=== PATIENT | female | born 1945 | race Caucasian/White ===

== ENCOUNTER 2016-11-12 09:44 | Day surgery (SDC) | payer MEDICARE, OTHER ==
[2016-11-12] MEDS ORDERED: TROPICAMIDE 1% OPHTH 2 ML DROPS OPTH ONE (10:23)
[2016-11-12] MEDS ORDERED: CYCLOPENTOLATE 1% OPHTH DROPS 2 ML OPTH ONE (10:23)
[2016-11-12] MEDS ORDERED: KETOROLAC 0.45% OPHTH DROPS OPTH ONE (10:23)
[2016-11-12] MEDS ORDERED: LACTATED RINGERS 500 ML IV ONE (10:32)
[2016-11-12] MEDS ORDERED: TETRACAINE 0.5% OPHTH DROPS 4 ML OPTH ONE (12:26)
[2016-11-12] MEDS ORDERED: levoFLOXacin 0.5% OPHTH DROPS 5 ML OPTH ONE (12:26)
[2016-11-12] MEDS ORDERED: PROPARACAINE 0.5% OPHTH DROPS 15 ML OPTH ONE (12:26)
[2016-11-12] MEDS ORDERED: BRIMONIDINE 0.2% OPHTH DROPS 5 ML OPTH ONE (12:26)
[2016-11-12] MEDS ORDERED: EPINEPHrine 1 MG/ML AMP IO ONE (12:26)
[2016-11-12] MEDS ORDERED: CHONDR SULF/HYALURONATE SYRINGE IO ONE (12:27)
[2016-11-12] MEDS ORDERED: BSS/LIDOCAINE/EPINEPHRINE 1 ML SYRINGE IO ONE (12:27)
[2016-11-12] MEDS ORDERED: METOPROLOL 5 MG/5 ML VIAL IVP ONE (12:35)
[2016-11-12] MEDS ORDERED: PROPOFOL 200 MG/20 ML VIAL IVP ONE (12:35)
[2016-11-12] MEDS ORDERED: LIDOCAINE-MPF 2% 5 ML VIAL IM ONE (12:35)
[2016-11-12] MEDS ORDERED: MIDAZOLAM 2 MG/2 ML VIAL IVP ONE (12:35)
== END 2016-11-12 09:45 | disposition home or self-care (01) ==
PROC: 08RK3JZ Replacement of Left Lens with Synthetic Substitute, Percutaneous Approach (ICD-10-PCS; principal; 2016-11-12 11:00)
DX: H25.12 Age-related nuclear cataract, left eye (principal)
CPT/HCPCS: 66984; V2632; V2787

== ENCOUNTER 2016-11-26 06:11 | Day surgery (SDC) | payer MEDICARE, OTHER ==
[2016-11-26] MEDS ORDERED: TROPICAMIDE 1% OPHTH 2 ML DROPS OPTH ONE (06:50)
[2016-11-26] MEDS ORDERED: KETOROLAC 0.45% OPHTH DROPS OPTH ONE (06:50)
[2016-11-26] MEDS ORDERED: CYCLOPENTOLATE 1% OPHTH DROPS 2 ML OPTH ONE (06:50)
[2016-11-26] MEDS ORDERED: LACTATED RINGERS 500 ML IV ONE (07:00)
[2016-11-26] MEDS ORDERED: MIDAZOLAM 2 MG/2 ML VIAL IVP ONE (07:40)
[2016-11-26] MEDS ORDERED: levoFLOXacin 0.5% OPHTH DROPS 5 ML OPTH ONE (07:50)
[2016-11-26] MEDS ORDERED: EPINEPHrine 1 MG/ML AMP IO ONE (07:50)
[2016-11-26] MEDS ORDERED: PROPARACAINE 0.5% OPHTH DROPS 15 ML OPTH ONE (07:50)
[2016-11-26] MEDS ORDERED: BRIMONIDINE 0.2% OPHTH DROPS 5 ML OPTH ONE (07:50)
[2016-11-26] MEDS ORDERED: CHONDR SULF/HYALURONATE SYRINGE IO ONE (07:50)
[2016-11-26] MEDS ORDERED: TETRACAINE 0.5% OPHTH DROPS 4 ML OPTH ONE (07:50)
[2016-11-26] MEDS ORDERED: BSS/LIDOCAINE/EPINEPHRINE 1 ML SYRINGE IO ONE (07:51)
== END 2016-11-26 06:12 | disposition home or self-care (01) ==
PROC: 08RJ3JZ Replacement of Right Lens with Synthetic Substitute, Percutaneous Approach (ICD-10-PCS; principal; 2016-11-26 07:30)
DX: H25.11 Age-related nuclear cataract, right eye (principal); E78.5 Hyperlipidemia, unspecified
CPT/HCPCS: 66984; V2632

== ENCOUNTER 2020-12-25 13:08 | Outpatient (CLI) | payer MEDICARE, OTHER ==
[2020-12-25 13:51] LABS: CALCIUM 10.1 mg/dL (8.5-10.3); POTASSIUM 4.3 mmol/L (3.5-5.0)
== END 2020-12-25 13:09 | disposition home or self-care (01) ==
LOC: LAB 13:08
DX: I10 Essential (primary) hypertension (principal); E78.5 Hyperlipidemia, unspecified
CPT/HCPCS: 36415; 80048

== ENCOUNTER → 2021-04-11 | Outpatient (CLI) | payer MEDICARE, OTHER ==
--- NOTE | 2021-04-11 15:32 | XRAY Report ---
PROCEDURE: Foot 3 View LT INDICATIONS: FOOT PAIN, LEFT TECHNIQUE: 3 views of the foot were acquired. COMPARISON: None. FINDINGS: No acute fracture. Scattered subchondral sclerosis and spurring. 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 Mild first MTP joint degeneration. IMPRESSION: Mild degenerative changes. Reviewed by: Andrea Amador MD on 04/11/2021 3:31 PM PDT Approved by: Andrea Amador MD on 04/11/2021 3:31 PM PDT Station ID: [id number]
== END ==
LOC: DI.N 13:10
PROVIDERS: ATTEND Family Medicine
DX: M79.672 Pain in left foot (principal); M19.072 Primary osteoarthritis, left ankle and foot